=== PATIENT | male | born 1965 | race African-American/Black ===

== ENCOUNTER 2018-09-10 02:37 | Emergency (ER) | payer OTHER ==
[~2018-09-10] VITALS: Ht 170.2 cm; Wt 65.8 kg
[2018-09-10 02:41] VITALS: BP 184/110
[2018-09-10] MEDS ORDERED: CARVEDILOL12.5 MG PO (02:44)
[2018-09-10] MEDS ORDERED: PRINIVIL10 MG PO (02:44)
[2018-09-10] MEDS ORDERED: COREG25 MG PO (02:50)
[2018-09-10] MEDS ORDERED: ASPIRIN81 M2 PO (02:50)
[2018-09-10] MEDS ORDERED: SPIRONOLACTONE25 M1 PO (02:50)
[2018-09-10] MEDS ORDERED: LIPITOR40 MG PO (02:50)
[2018-09-10] MEDS ORDERED: KLOR-CON 1010 MEQ PO (02:50)
[2018-09-10] MEDS ORDERED: LASIX 40 MG TAB40 M2 PO (02:50)
[2018-09-10] MEDS ORDERED: LISINOPRIL40 MG PO (02:51)
[2018-09-10] MEDS ORDERED: NORCO 5-325 TA1 EAC1 PO (03:11)
[2018-09-10] MEDS ORDERED: AMOXICILLIN 50500 M1 PO (03:11)
== END 2018-09-10 03:37 | disposition home or self-care (01) ==
LOC: ER 02:37
DX: K02.9 Dental caries, unspecified (principal); F17.210 Nicotine dependence, cigarettes, uncomplicated; I11.0 Hypertensive heart disease with heart failure; I50.9 Heart failure, unspecified